=== PATIENT | male | born 1960 | race Caucasian/White ===

== ENCOUNTER 2017-06-26 05:54 | Inpatient (IN) | payer OTHER ==
[2017-06-09 10:54] VITALS: BMI 43.0
--- NOTE | 2017-06-09 11:26 | PAT Medication Instructions ---
Service Date Jun 09, 2017. Current Home Medication List Allopurinol (Zyloprim), 300 MG PO QAM Atorvastatin (Lipitor), 20 MG PO QAM Cholecalciferol (Vitamin D), 1 TAB PO QAM Cyclobenzaprine Hcl (Flexeril), 10 MG PO TID PRN Levothyroxine Sodium (Synthroid), 150 MCG PO QAM Loratadine (Claritin), 10 MG PO QAM Meloxicam (Mobic), 7.5 MG PO DAILY PRN for Pain Multivitamin (Multivitamin), 1 TAB PO DAILY Pantoprazole Sodium (Protonix), 40 MG PO QAM Sumatriptan Succinate (Imitrex), 50 MG PO UD Tamsulosin Hcl (Flomax), 0.4 MG PO QAM Tramadol Hcl (Ultram), 1-2 TABLETS PO Q4-6HR PRN Medication Instructions For Your Scheduled Surgery - Hold the following medications 2 weeks prior to surgery: Meloxicam (Mobic), 7.5 MG PO DAILY PRN for Pain - Hold the following medications the morning of surgery: Loratadine (Claritin), 10 MG PO QAM Multivitamin (Multivitamin), 1 TAB PO DAILY Cholecalciferol (Vitamin D), 1 TAB PO QAM Cyclobenzaprine Hcl (Flexeril), 10 MG PO TID PRN - Take the following medications the morning of surgery with a sip of water: Tramadol Hcl (Ultram), 1-2 TABLETS PO Q4-6HR PRN (if needed, can be taken up to four hours before surgery) Tamsulosin Hcl (Flomax), 0.4 MG PO QAM Sumatriptan Succinate (Imitrex), 50 MG PO UD (if needed) Allopurinol (Zyloprim), 300 MG PO QAM Atorvastatin (Lipitor), 20 MG PO QAM Levothyroxine Sodium (Synthroid), 150 MCG PO QAM Pantoprazole Sodium (Protonix), 40 MG PO QAM - Take the following medications as scheduled the night before surgery: Tramadol Hcl (Ultram), 1-2 TABLETS PO Q4-6HR PRN (if needed) Sumatriptan Succinate (Imitrex), 50 MG PO UD Cyclobenzaprine Hcl (Flexeril), 10 MG PO TID PRN (if needed) If you have any questions please call us at [phone] or [phone] or [phone]
[2017-06-09 11:47] LABS: BASO % 0.5 %; BASO ABS # 0.04 K/uL (0-0.2); EOS ABS # 0.38 K/uL (0-0.5); IG# 0.01 K/uL (0.00-0.02); LYMPH % 36.4 %; LYMPH ABS # 2.77 K/uL (1.2-3.4); MEAN CORPUSCULAR HEMOGLOBIN 31.4 pg (25-34); MEAN CORPUSCULAR HGB CONC 34.9 g/dl (32-36); MEAN PLATELET VOLUME 10.2 fL (7.4-10.4); MONO % 7.5 %; MONO ABS # 0.57 K/uL (0.11-0.59); NEUT % 50.5 %; NEUT ABS # 3.83 K/uL (1.4-6.5); PLATELET COUNT 199 K/uL (130-400); RED CELL DISTRIBUTION WIDTH CV 14.1 % (11.5-14.5); RED CELL DISTRIBUTION WIDTH SD 45.9 fL (36.4-46.3)
--- NOTE | 2017-06-09 12:06 | DIAGNOSTIC IMAGING REPORT ---
CHEST 2 VIEWS ROUTINE HISTORY: 56 years-old Male PAT preoperative exam. No acute chest complaints. COMPARISON: Chest radiograph 06/15/2012 TECHNIQUE: PA and lateral views of the chest FINDINGS: Cardiomediastinal and hilar silhouettes are within normal limits. The lungs are hyperinflated with diaphragmatic flattening and increased retrosternal clear space. Peripheral distribution of reticular opacities are noted, right and left than multilobar lung zone distribution appear to have progressed from prior study. Mild right hemidiaphragmatic elevation. There is no pneumothorax, pleural effusion or focal airspace consolidation. Bones appear grossly intact. IMPRESSION: 1. Peripheral distribution of reticular opacities, right greater than left suggest areas of chronic scarring. 2. Hyperinflation. The above report was generated using voice recognition software. It may contain grammatical, syntax or spelling errors. Electronically signed by: Chivo Arreola M.D. 06/09/2017 12:05 PM Dictated Date/Time: 06/09/2017 12:02 PM
[2017-06-26] VITALS (10 sets, daily range): BP systolic 97–134; BP diastolic 63–90; PULSE 92–110; TEMP 36.4–37; O2SAT 84–97; BMI 43.0
[~2017-06-26] VITALS: Ht 167.6 cm; Wt 121.0 kg
[~2017-06-26 05:54] MED LIST: ALLO300T2 PO; ATOR-22 PO; CHOL200010 PO; CLR10 PO; CYCL10TA6 PO; LEVO150T PO; MELO7.5T5 PO; MULT-506 PO; PANT40TA PO; SUMA50TA15 PO; TAMS0.4C38 PO; TRAM-453 PO
[2017-06-26] MEDS ORDERED: CEFAZOLIN 3000MG IV PUSH 22.5 ML IV SCH (06:00)
[2017-06-26] MEDS ORDERED: CEFAZOLIN 2000MG IV PUSH 15 ML IV SCH (06:00)
[2017-06-26] MEDS ORDERED: LACTATED RINGER'S 1000ML 1,000 ML IV SCH (06:00)
[2017-06-26] MEDS ORDERED: [UNRECOGNIZED DRUG - REMARK] PO (06:20)
[2017-06-26] MEDS ORDERED: MIDAZOLAM HCL 1 MG/ML 2ML VIAL ONE (06:46)
[2017-06-26] MEDS ORDERED: FENTANYL CITRATE INJ 50 MCG/1 ML 2 ML VIAL ONE ×6 (06:46→11:47)
[2017-06-26] MEDS ORDERED: BACITRACIN 50000 UNIT VIAL ONE (06:52)
[2017-06-26] MEDS ORDERED: BUPIVACAINE/EPINEPHRINE 0.5% MPF 1:200,000 30 ML VIAL ONE ×2 (06:52→07:26)
--- NOTE | 2017-06-26 07:35 | History & Physical Bridge Note ---
H&P Re-Evaluation Bridge Note: I have examined the patient, reviewed the History & Physical and in the interval since the performance of the History & Physical I have noted the following changes of clinical significance: No changes noted
--- NOTE | 2017-06-26 07:36 | History and Physical ---
History & Physical Date Jun 26, 2017. Chief Complaint Back and leg pain History of Present Illness The patient is a 56 year old male with complaints of back and leg pain Additional History Hepatic Disease: No Endocrine Disorder: No Kidney Disease: No Hypertension: No Heart Disease: No Bleeding Tendencies: No Infectious Diseases: No Allergies Coded Allergies: Diphenhydramine (Verified Allergy, Mild, ITCHY, HIVES, 06/26/17) Home Medications Scheduled Allopurinol (Zyloprim), 300 MG PO QAM Atorvastatin (Lipitor), 20 MG PO QAM Cholecalciferol (Vitamin D), 1 TAB PO QAM Levothyroxine Sodium (Synthroid), 150 MCG PO QAM Loratadine (Claritin), 10 MG PO QAM Multivitamin (Multivitamin), 1 TAB PO DAILY Pantoprazole Sodium (Protonix), 40 MG PO QAM Sumatriptan Succinate (Imitrex), 50 MG PO UD Tamsulosin Hcl (Flomax), 0.4 MG PO QAM Tramadol Hcl (Ultram), 1-2 TABLETS PO Q4-6HR PRN [diabetic pill], 1 TAB PO BID Scheduled PRN Cyclobenzaprine Hcl (Flexeril), 10 MG PO TID PRN Meloxicam (Mobic), 7.5 MG PO DAILY PRN for Pain Physical Examination Skin: warm/dry, no rash Eyes: normal inspection, EOMI, sclerae normal ENT: normal ENT inspection, pharynx normal Head: normocephalic, atraumatic Neck: supple, no adenopathy, trachea midline Respiratory/Chest: lungs clear, normal breath sounds, no respiratory distress Cardiovascular: regular rate, rhythm, no edema, no murmur Abdomen / GI: normal bowel sounds, non tender Back: normal inspection Extremities: normal inspection, normal range of motion Neurologic/Psych: no motor/sensory deficits, alert, normal reflexes, oriented x 3 Diagnosis Lumbar spinal stenosis Plan of Treatment Removal of hardware L3 to S1 decompression and fusion T12 to L2 with iliac bolts
[2017-06-26] MEDS ORDERED: HYDROmorphone INJ 2 MG/ML SYR/VIAL ONE ×4 (08:08→12:01)
[2017-06-26] MEDS ORDERED: EpHEDrine SULFATE INJ 50 MG/ML AMP IV PRN (08:30)
[2017-06-26] MEDS ORDERED: ATROPINE SULFATE 0.1 MG/ML 5ML SYR IV PRN (08:30)
[2017-06-26] MEDS ORDERED: HYDROmorphone INJ 1 MG/ML SYR IV PRN (08:30)
[2017-06-26] MEDS ORDERED: FENTANYL CITRATE INJ 50 MCG/1 ML 2 ML VIAL IV PRN (08:30)
[2017-06-26] MEDS ORDERED: ONDANSETRON INJ 2 MG/ML 2 ML VIAL IV PRN ×2 (08:30→11:45)
[2017-06-26] MEDS ORDERED: ALBUMIN HUMAN 5% 12.5 GM/250 ML VIAL IV ONE (09:46)
[2017-06-26] MEDS ORDERED: DEXAMETHASONE SOD INJ 4 MG/ML VIAL ONE (10:21)
[2017-06-26] MEDS ORDERED: ROCURONIUM BROMIDE 10 MG/ML 5 ML VIAL IV ONE (10:21)
[2017-06-26] MEDS ORDERED: LIDOCAINE HCL 2% 2 ML VIAL (20MG/ML) ONE (10:21)
[2017-06-26] MEDS ORDERED: PROPOFOL IV EMULSION 10 MG/ML 20 ML VIAL IV ONE (10:21)
[2017-06-26] MEDS ORDERED: ONDANSETRON INJ 2 MG/ML 2 ML VIAL ONE ×2 (10:21→11:53)
[2017-06-26] MEDS ORDERED: CEFAZOLIN SOD 1 GM VIAL ONE (11:06)
[2017-06-26] MEDS ORDERED: FLOSEAL HEMOSTATIC MATRIX 10ML TOP ONE (11:28)
[2017-06-26 11:35] LABS: HEMATOCRIT 31.5 % (42-52); HEMOGLOBIN 11.2 g/dL (14.0-18.0)
[2017-06-26] MEDS ORDERED: ACETAMINOPHEN IV 100 ML IV PRN (11:45)
[2017-06-26] MEDS ORDERED: METOCLOPRAMIDE HCL INJ 5 MG/ML 2 ML VIAL IV PRN (11:45)
[2017-06-26] MEDS ORDERED: LORAZEPAM 0.5 MG TAB PO PRN (11:45)
[2017-06-26] MEDS ORDERED: LORAZEPAM INJ 0.5 MG in SYRINGE 0 ML IV PRN (11:45)
[2017-06-26] MEDS ORDERED: PROMETHAZINE HCL INJ 12.5 MG in SODIUM CHLORIDE 0.9% 50ML 50 ML IV PRN (11:45)
[2017-06-26] MEDS ORDERED: MAGNESIUM HYDROXIDE SUSP 30 ML UDC PO PRN (11:45)
[2017-06-26] MEDS ORDERED: SOD PHOSPHATE/SOD BIPHOSPHATE ENEMA 132 ML BTL PR PRN (11:45)
[2017-06-26] MEDS ORDERED: BISACODYL 10 MG SUPP PR PRN (11:45)
[2017-06-26] MEDS ORDERED: FAMOTIDINE 20 MG TAB PO PRN (11:45)
[2017-06-26] MEDS ORDERED: SUMATRIPTAN SUCCINATE 50 MG TAB PO PRN (11:45)
[2017-06-26] MEDS ORDERED: DO NOT ADMINISTER FLU VACCINE PRN (11:45)
[2017-06-26] MEDS ORDERED: NALOXONE HCL 0.4 MG/1 ML VIAL/CARP IV PRN (11:45)
[2017-06-26] MEDS ORDERED: hydrOXYzine HCL 25 MG TAB PO PRN (11:45)
[2017-06-26] MEDS ORDERED: CEFAZOLIN IV 2,000 MG in DEXTROSE 5% 50ML 50 ML IV SCH (11:45)
[2017-06-26] MEDS ORDERED: DO NOT ADMINISTER PNEUMOCOCCAL VACCINE PRN (11:45)
[2017-06-26] MEDS ORDERED: SODIUM CHLORIDE 0.9% 1000ML 1,000 ML IV SCH (11:45)
[2017-06-26] MEDS ORDERED: ALUMINUM/MAGNESIUM SUSP 30 ML UDC PO PRN (11:45)
--- NOTE | 2017-06-26 11:45 | [facility] Operative Report ---
Operative Report Operative Date Jun 26, 2017. Pre-Operative Diagnosis Lumbar Spinal Stenosis Post-Operative Diagnosis Same Procedure(s) Performed #1 removal of posterior segmental instrumentation L3 to S1. #2 expiration of fusion L3 to S1. #3 lumbar decompression medial facetectomies foraminotomies L1 to L2 3. #4 posterior spinal fusion T11 to L3. #5 bilateral SI joint fusions. #6 placement posterior segmental instrumentation T11 to S1 with bilateral iliac bolts. #7 interbody fusion L2 3. #8 placement peek cage 11 x 22 mm at L2-3. #9 placement of locally harvested morcellized autograft in the posterior lateral gutters. #10 placement infuse collagen sponge, and Master graft in the posterior lateral gutters and ostial amp in the interbody spaces. Surgeon Dr. Maher Supplier Development Manager Surgeon(s) Vickie Greenwood PA-C Estimated Blood Loss 1400 Description of Procedure Patient was met with preoperatively case discussed all questions addressed. After informed consent obtained patient was taken to the operative suite underwent intubation and placed in a prone position the Lester table on top of the Eitan frame. All bony prominences were well-padded the eyes were inspected to ensure no external pressure placed upon them. This point the lumbar spine was prepped and draped in the normal sterile fashion. Sharp dissection with the assistance of Bovie cautery was performed onto an exposing lamina and transverse processes of T11-T12 L1-L2 and instrumentation L3 L4-L5 S1 levels as well as bilateral SI joints. Then proceeded remove the hardware from L3 to S1 bilaterally spine the fusion mass noting it to be intact. Then performed a complete laminectomy of L2 partial laminectomy of L3 addressing severe lateral recess and foraminal stenosis. Pedicle screws were then placed and T11 T12 L1 L2-L3 L4 S1 levels as well as bilateral iliac bolts. Processes sylvia was then cut contoured and placed bilaterally. Through a transforaminal approach on the left complete discectomy of L2-3 was performed endplates graded to subcortical bleeding bone and a 11 x 22 mm peek cage filled with osteal bone graft tapped in position. Rods were then locked and final position bilaterally. A cross-link locked in position. The transverse processes and lamina of T 11 T12 L1 L2 and L3 as well as the bilateral SI joints were burred to subcortical bleeding bone. Infuse collagen sponge, mass graft was placed posterior gutters as well as in the bilateral SI joints. 15 round SHANTE drain inserted. Incision was then closed with 1 Vicryl the fascia 2-0 Vicryl subcutaneous tensely 4-0 Monocryl for fossa closure Steri-Strips dressings placed. Patient with continued PACU stable condition. Please note Vickie Thomason was present at the entire procedure involved in patient positioning complex portions of the surgery and final skin closure. I attest to the content of the Intraoperative Record and any orders documented therein. Any exceptions are noted below.
[2017-06-26] MEDS ORDERED: NEOSTIGMINE METHYLSULFATE 1 MG/ML 10ML VIAL ONE (11:53)
[2017-06-26] MEDS ORDERED: EpHEDrine SULFATE 50MG/5ML SYR ONE (11:53)
[2017-06-26] MEDS ORDERED: PHENYLEPHRINE 100MCG/ML 5ML SYR ONE (11:53)
[2017-06-26] MEDS ORDERED: KETOROLAC TROMETHAMINE 30 MG/ML VIAL ONE (11:53)
[2017-06-26] MEDS ORDERED: VOLUVEN IN NSS ONE (11:53)
[2017-06-26] MEDS ORDERED: GLYCOPYRROLATE INJ 0.2 MG/ML VIAL ONE (11:53)
--- NOTE | 2017-06-26 12:25 | DIAGNOSTIC IMAGING REPORT ---
INTRAOPERATIVE LUMBAR SPINE 6 VIEWS CLINICAL HISTORY: L3-S1 HARDWARE REMOVAL - T11-L2 DECOMPRESSION/FUSION COMPARISON STUDY: No previous studies for comparison. FINDINGS: 42 seconds of fluoroscopic time was utilized. 6 intraoperative fluoroscopic spot images are provided for interpretation. There are postsurgical changes of L2-3, L4-5, and L5-S1 discectomy and interbody fusions. There is posterior spinal rodding with pedicle screw fixation extending from the T11 to the S1 level. There are bilateral sacroiliac bolts. IMPRESSION: Intraoperative radiographs as described above. Electronically signed by: Rohan Guajardo M.D. 06/26/2017 12:23 PM Dictated Date/Time: 06/26/2017 12:21 PM
[2017-06-26] MEDS ORDERED: HYDROmorphone HCL 0.5MG/ML 50 ML CASSETTE ONE (12:31)
[2017-06-26] MEDS ORDERED: NovoLIN-R INSULIN PER UNIT CHARGE ONE (12:51)
[2017-06-26] MEDS: HYDROmorphone HCL 0.5MG/ML 50 ML CASSETTE IV PRN ×3 (13:46→23:19)
--- NOTE | 2017-06-26 13:52 | Anesthesiology Progress Note ---
Anesthesia Post Op Note Date & Time Jun 26, 2017 at 13:52 Vital Signs Pain Intensity: 4.0 Vital Signs Past 12 Hours Date Time Temp Pulse Resp B/P (MAP) Pulse Ox O2 Delivery O2 Flow Rate FiO2 06/26/17 13:45 36.6 99 16 97/66 (76) 97 Nasal Cannula 2.0 06/26/17 13:30 108 16 121/71 96 Nasal Cannula 3 06/26/17 13:10 100 12 110/70 95 Nasal Cannula 3 06/26/17 13:00 36.2 99 19 117/73 97 Nasal Cannula 3 06/26/17 12:50 98 16 108/77 95 Nasal Cannula 3 06/26/17 12:40 96 16 115/75 98 Oxymask 3 06/26/17 12:30 92 16 116/77 98 Oxymask 5 06/26/17 12:20 100 16 110/81 98 Oxymask 10 06/26/17 12:14 36.3 97 16 118/74 96 Oxymask 10 06/26/17 06:10 36.8 105 20 134/90 94 Room Air Notes Mental Status: alert / awake / arousable, participated in evaluation Pt Amnestic to Procedure: Yes Nausea / Vomiting: adequately controlled Pain: adequately controlled Airway Patency, RR, SpO2: stable & adequate BP & HR: stable & adequate Hydration State: stable & adequate Anesthetic Complications: no major complications apparent
[2017-06-26] MEDS ORDERED: ESMOLOL HCL 10 MG/ML 10 ML VIAL ONE (14:25)
[2017-06-26] MEDS ORDERED: GLC500 PO (14:40)
[2017-06-26] MEDS: SODIUM CHLORIDE 0.9% 1000ML 1,000 ML IV SCH ×2 (14:41→21:31)
[2017-06-26] MEDS ORDERED: GLUCOSE 40% GEL 15 GM TUBE PO PRN (14:45)
[2017-06-26] MEDS ORDERED: GLUCAGON FOR INJ 1 MG VIAL SQ PRN (14:45)
[2017-06-26] MEDS ORDERED: GLUCOSE 10 TABS/TUBE PO PRN (14:45)
[2017-06-26] MEDS ORDERED: DEXTROSE 50% 50 ML SYR IV PRN (14:45)
[2017-06-26] MEDS ORDERED: DC ALL PREVIOUSLY ORDERED DIABETES MEDS ONE (14:45)
[2017-06-26] MEDS ORDERED: PHARMACY GLYCEMIC MGMT CONSULT PRN (14:46)
[2017-06-26 14:57] LABS: HEMATOCRIT 31.1 % (42-52); HEMOGLOBIN 10.9 g/dL (14.0-18.0); MEAN CELL VOLUME 88.9 fL (80-100); MEAN CORPUSCULAR HEMOGLOBIN 31.1 pg (25-34); MEAN PLATELET VOLUME 9.1 fL (7.4-10.4); PLATELET COUNT 142 K/uL (130-400); RED CELL DISTRIBUTION WIDTH CV 14.1 % (11.5-14.5); RED CELL DISTRIBUTION WIDTH SD 45.8 fL (36.4-46.3); WHITE BLOOD COUNT 8.56 K/uL (4.8-10.8)
--- NOTE | 2017-06-26 15:14 | Pharmacy Progress Note ---
Glycemic Control Intl Consult Date of Service Jun 26, 2017. Scope Glycemic Pharmacist consulted by Dr Garcia on 06/26/17 for glycemic control and to write orders per [facility] inpatient glycemic control protocol Objective Weight (Kilograms): 121.00 Accuchecks BSG (last 24hrs): Test 06/26/17 12:48 06/26/17 13:11 06/26/17 14:10 06/26/17 14:45 Bedside Glucose 218 mg/dl (70-99) 212 mg/dl (70-99) 228 mg/dl (70-99) Laboratory Data (last 24hrs) Test 06/26/17 14:45 White Blood Count 8.56 K/uL Recent Pertinent Medications Outpatient Anti-diabetic Regimen: * Metformin 500mg PO BID with meals * A1c - ordered for tomorrow morning Risk Factors for Insulin Resistance: * Steroids: Dexamethasone 12mg IV in OR * Recent Surgery: POD 0 Spinal fusion * Diet: Type 2 DM Assessment & Plan ASSESSMENT: * 56 year old male type 2 diabetic admitted for with spinal stenosis, s/p surgery with hyperglycemia, d/t IV steroids * Pt is maintained on oral antidiabetic agents as an outpatient * Oral agents are not recommended for inpatient use d/t drug interactions, changing PO intake, and difficulty titrating for acute hyper/hypoglycemia. ADA recommends re-initiating outpatient oral agents 1-2 days prior to discharge if/ when appropriate if they were held on admission. * Will hold oral agents for admission and utilize SQ basal bolus insulin regimen which is the recommended regimen for inpatient glycemic control. * Will initiate weight based insulin dosing for insulin nuria patient and titrate based on BSG trends. * Begin with stress of 3 d/t IV steroids PLAN FOR INPATIENT GLYCEMIC CONTROL: * A1c with AM labs * Holding outpatient oral diabetes medications * Basal insulin with LANTUS 45 units SQ x 1 dose now then * 15 units HS if BSG 140mg/dl or greater * Follow up with AM BSG to determine if further Lantus is needed * Correctional Insulin with NOVOLOG per scale ACHS and overnight at 0000 and 0400 d/t IV steroids * Goal Range: Low 110 mg/dL - High 140 mg/dL * Correction Factor: 15 mg/dL/unit * Nutritional / Prandial insulin per carb ratio of 1 unit per 5 grams CHO consumed * Please note that the plan above was derived based on current level of insulin resistance and hospital stress. These recommendations are appropriate for inpatient admission only. Plan of care upon discharge will need to be reassessed to avoid potential outpatient hypo/hyperglycemia. Thank you.
[2017-06-26] MEDS ORDERED: INSULIN GLARGINE SOLOSTAR 100 UNITS/ML 3 ML PEN SC ONE (15:15)
[2017-06-26 15:45] LABS: CALCIUM 8.3 mg/dl (8.5-10.1); CREATININE 1.25 mg/dl (0.60-1.40); POTASSIUM 4.2 mmol/L (3.5-5.1)
--- NOTE | 2017-06-26 15:49 | Medical Consult ---
Consultation Date of Consultation: Jun 26, 2017. Attending Physician: Darwin Maher D.O. Reason for Consultation: post-op medical management History of Present Illness This is a 56yo M with a PMH of lumbosacral disc degeneration, DM II, hypothyroidism, GERD, Gout, BPH and HLD who is POD #0 s/p decompression fusion T12-L2 with iliac bolts and removal of hardware L3-S1 by Dr. Maher. Patient is doing well post-operatively. Denies any pain, fever, chills, lightheadedness, headache, visual changes, sore throat, CP, SOB, abdominal pain, nausea, vomiting , dysuria or LE swelling. Does endorse some numbness in his R hand that is new since surgery today. Denies any weakness or tingling. Follows with Dr. Rudd at [facility]. Was recently diagnosed with DM II and is taking metformin. Most recent hgb a1c was 8.1 in May 2017. Past Medical/Surgical History Medical Problems: (1) BPH (benign prostatic hyperplasia) Status: Chronic (2) Diabetes mellitus, type II Status: Chronic (3) GERD (gastroesophageal reflux disease) Status: Chronic (4) Gout Status: Chronic (5) HLD (hyperlipidemia) Status: Chronic (6) Hypothyroidism Status: Chronic (7) Lumbar stenosis with neurogenic claudication Status: Chronic Family History Hypertension Social History Smoking Status: Former Smoker Alcohol Use: none Marital Status: Housing Status: lives with family Occupation Status: employed Allergies Coded Allergies: Diphenhydramine (Verified Allergy, Mild, ITCHY, HIVES, 06/26/17) Home Medications Reported Home Medications Medications Dose Route/Sig Max Daily Dose Days Date Category Dose Instructions Metformin HCl 500 Mg Tab 500 Mg PO BIDM 06/26/17 Reported Flomax (Tamsulosin Hcl) 0.4 Mg Cap 0.4 Mg PO QAM 06/09/17 Reported Claritin (Loratadine) 10 Mg Tab 10 Mg PO QAM 06/09/17 Reported Lipitor (Atorvastatin Calcium) 20 Mg Tab 20 Mg PO QAM 06/09/17 Reported Mobic (Meloxicam) 7.5 Mg Tab 7.5 Mg PO DAILY PRN 06/09/17 Reported Multivitamin (Multivitamins) Tab 1 Tab PO DAILY 06/09/17 Reported Vitamin D (Cholecalciferol) 2,000 Unit Cap 5,000 Inter.unit PO QAM 06/09/17 Reported Synthroid (Levothyroxine Sodium) 150 Mcg Tab 150 Mcg PO QAM 06/09/17 Reported Imitrex (Sumatriptan Succinate) 50 Mg Tab 50 Mg PO UD 06/15/12 Reported 1 tablet at onset. may repeat in 2 hours Protonix (Pantoprazole Sodium) 40 Mg Tab 40 Mg PO QAM 06/15/12 Reported Zyloprim (Allopurinol) 300 Mg Tab 300 Mg PO QAM 06/15/12 Reported Flexeril (Cyclobenzaprine Hcl) 10 Mg Tab 10 Mg PO TID PRN 06/15/12 Reported Ultram (Tramadol Hcl) 50 Mg Tab 1-2 Tablets PO Q4-6HR PRN 06/15/12 Reported PRN PAIN Current Inpatient Medications Current Inpatient Medications Medications (Trade) Dose Ordered Sig/Nelda Route Start Time Stop Time Status Last Admin Dose Admin Cefazolin Sodium 22.5 ml @ 3 mls/min PREOP IV 06/26/17 06:00 06/26/17 18:00 06/26/17 07:43 3 MLS/MIN Promethazine HCl 12.5 mg/Sodium Chloride 50.5 ml @ 202 mls/hr Q6H PRN IV 06/26/17 11:45 07/26/17 11:44 Ondansetron HCl (Zofran Inj) 4 mg Q6H PRN IV 06/26/17 11:45 07/26/17 11:44 Metoclopramide HCl (Reglan Inj) 10 mg Q6H PRN IV 06/26/17 11:45 07/26/17 11:44 Lorazepam (Ativan Tab) 0.5 mg Q8H PRN PO 06/26/17 11:45 07/26/17 11:44 Lorazepam 0.5 mg/ Syringe 0.25 ml @ 1 mls/min Q8H PRN IV 06/26/17 11:45 07/26/17 11:44 Pneumococcal Polysaccharide Vaccine 1 ea PRN PRN N/A 06/26/17 11:45 07/26/17 11:44 Influenza Virus Vacc Triv Types A&B 1 ea PRN PRN N/A 06/26/17 11:45 07/26/17 11:44 Polyethylene (Miralax Powder Packet) 17 gm Q6 PO 06/28/17 06:00 07/28/17 05:59 Bisacodyl (Dulcolax Supp) 10 mg DAILY PRN [place] 06/26/17 11:45 07/26/17 11:44 Magnesium Hydroxide (Milk Of Magnesia Susp) 30 ml DAILY PRN PO 06/26/17 11:45 07/26/17 11:44 Hydromorphone HCl (Dilaudid Inj) 0.5 mg Q3H PRN IV 06/27/17 06:00 07/11/17 05:59 Oxycodone HCl (Roxicodone Immediate Rel Tab) 5-10mg prn moderate to sev... Q4H PRN PO 06/27/17 06:00 07/11/17 05:59 Sodium Chloride 1,000 ml @ 150 mls/hr Q6H40M IV 06/26/17 14:15 07/26/17 14:14 06/26/17 14:41 150 MLS/HR Acetaminophen (Tylenol Tab) 1,000 mg Q8H PRN PO 06/26/17 11:45 07/26/17 11:44 Acetaminophen 100 ml @ 400 mls/hr Q8H PRN IV 06/26/17 11:45 07/26/17 11:44 Naloxone HCl (Narcan Inj) 0.1 mg Q5M PRN IV 06/27/17 06:00 07/27/17 05:59 Senna/Docusate Sodium (Senokot S Tab) 2 tab HS PO 06/26/17 21:00 07/26/17 20:59 Sodium Biphosphate/ Sodium Phosphate (Fleet Enema) 132 ml ONE PRN [place] 06/26/17 11:45 07/26/17 11:44 Hydroxyzine HCl (Vistaril Tab) 25 mg Q8H PRN PO 06/26/17 11:45 07/26/17 11:44 Al Hydroxide/Mg Hydroxide (Maalox Susp) 30 ml Q6H PRN PO 06/26/17 11:45 07/26/17 11:44 Famotidine (Pepcid Tab) 20 mg Q12H PRN PO 06/26/17 11:45 07/26/17 11:44 Miscellaneous Information (Discontinue INTERNATIONAL TRADE SPECIALIST) 1 ea TODAY@0600 N/A 06/27/17 06:00 06/27/17 06:01 Naloxone HCl (Narcan Inj) 0.1 mg Q5M PRN IV 06/26/17 11:45 06/27/17 06:00 Hydromorphone HCl (Dilaudid Workforce Planning Analyst) 25 mg PRN PRN IV 06/26/17 11:45 06/27/17 06:00 06/26/17 15:14 25 MG Sodium Chloride 1,000 ml @ 15 mls/hr Q24H IV 06/26/17 11:45 06/27/17 06:00 Allopurinol (Zyloprim Tab) 300 mg QAM PO 06/27/17 09:00 07/27/17 08:59 Atorvastatin Calcium (Lipitor Tab) 20 mg QAM PO 06/27/17 09:00 07/27/17 08:59 Levothyroxine Sodium (Synthroid Tab) 150 mcg DAILYBB PO 06/27/17 06:00 07/27/17 05:59 Loratadine (Claritin Tab) 10 mg QAM PO 06/27/17 09:00 07/27/17 08:59 Pantoprazole Sodium (Protonix Tab) 40 mg QAM PO 06/27/17 09:00 07/27/17 08:59 Sumatriptan Succinate (Imitrex Tab) 50 mg UD PRN PO 06/26/17 11:45 07/26/17 11:44 Tamsulosin HCl (Flomax Cap) 0.4 mg QAM PO 06/27/17 09:00 07/27/17 08:59 Tramadol HCl (Ultram Tab) 50 mg Q4H PRN PO 06/26/17 12:00 07/26/17 11:59 Hydromorphone HCl (Dilaudid Inj) 1 mg Q3H PRN IV 06/27/17 06:00 07/11/17 05:59 Cefazolin Sodium 2000 mg/Syringe 15 ml @ 3.75 mls/ min Q8H IV 06/26/17 16:00 06/27/17 00:03 Insulin Aspart (novoLOG ASPART) SLIDING SCALE IF C... ACHS SC 06/26/17 15:15 07/26/17 15:14 Glucose (Glucose 40% Gel) 15-30 GRAMS 15 GRAMS... UD PRN PO 06/26/17 14:45 07/26/17 14:44 Glucose (Glucose Chew Tab) 4-8 Tablets 4 Tabl... UD PRN PO 06/26/17 14:45 07/26/17 14:44 Dextrose (Dextrose 50% 50ML Syringe) 25-50ML OF 50% DW IV FOR... UD PRN IV 06/26/17 14:45 07/26/17 14:44 Glucagon (Glucagon Inj) 1 mg UD PRN SQ 06/26/17 14:45 07/26/17 14:44 Miscellaneous Information (Consult Glycemic Management Pharmacy) 1 ea UD PRN N/A 06/26/17 14:46 07/26/17 14:45 Insulin Glargine (Lantus Solostar Pen) SEE PROTOCOL HS SC 06/26/17 21:00 07/26/17 20:59 Insulin Aspart (novoLOG ASPART) SLIDING SCALE IF C... 0000,0400 AL 06/27/17 00:00 06/27/17 04:01 Review of Systems Ten systems reviewed and negative except as noted in the HPI. Physical Exam Date Time Temp Pulse Resp B/P (MAP) Pulse Ox O2 Delivery O2 Flow Rate FiO2 06/26/17 14:50 36.4 110 19 103/69 (80) 95 Nasal Cannula 2.0 06/26/17 14:37 Nasal Cannula 3.0 06/26/17 14:34 Nasal Cannula 3.0 06/26/17 14:19 36.4 106 18 99/65 (76) 96 Nasal Cannula 2.0 06/26/17 13:45 36.6 99 16 97/66 (76) 97 Nasal Cannula 2.0 06/26/17 13:30 108 16 121/71 96 Nasal Cannula 3 06/26/17 13:10 100 12 110/70 95 Nasal Cannula 3 06/26/17 13:00 36.2 99 19 117/73 97 Nasal Cannula 3 06/26/17 12:50 98 16 108/77 95 Nasal Cannula 3 06/26/17 12:40 96 16 115/75 98 Oxymask 3 06/26/17 12:30 92 16 116/77 98 Oxymask 5 06/26/17 12:20 100 16 110/81 98 Oxymask 10 06/26/17 12:14 36.3 97 16 118/74 96 Oxymask 10 06/26/17 06:10 36.8 105 20 134/90 94 Room Air General Appearance: WD/WN, no apparent distress, + obese Head: normocephalic, atraumatic Eyes: normal inspection, PERRL, sclerae normal ENT: normal ENT inspection, hearing grossly normal, pharynx normal Neck: supple, thyroid normal, trachea midline Respiratory/Chest: chest non-tender, lungs clear, normal breath sounds, no respiratory distress, no accessory muscle use Cardiovascular: regular rate, rhythm, no murmur, normal peripheral pulses Abdomen/GI: non tender, soft, no organomegaly Back: normal inspection, + pertinent finding (Dressing intact. Clean, dry. ) Extremities/Musculoskelatal: normal inspection (SCDs bilaterally ), no calf tenderness, no pedal edema Neurologic/Psych: no motor/sensory deficits, alert, normal mood/affect, oriented x 3 Skin: normal color, warm/dry Laboratory Results Last 24 Hours Test 06/26/17 11:25 06/26/17 12:48 06/26/17 13:11 06/26/17 14:10 Hemoglobin 11.2 g/dL Hematocrit 31.5 % Bedside Glucose 218 mg/dl 212 mg/dl 228 mg/dl Test 06/26/17 14:45 White Blood Count 8.56 K/uL Red Blood Count 3.50 M/uL Hemoglobin 10.9 g/dL Hematocrit 31.1 % Mean Corpuscular Volume 88.9 fL Mean Corpuscular Hemoglobin 31.1 pg Mean Corpuscular Hemoglobin Concent 35.0 g/dl RDW Standard Deviation 45.8 fL RDW Coefficient of Variation 14.1 % Platelet Count 142 K/uL Mean Platelet Volume 9.1 fL Sodium Level 139 mmol/L Potassium Level 4.2 mmol/L Chloride Level 106 mmol/L Carbon Dioxide Level 24 mmol/L Anion Gap 9.0 mmol/L Blood Urea Nitrogen 22 mg/dl Creatinine 1.25 mg/dl Est Creatinine Clear Calc Drug Dose 79.0 ml/min Estimated GFR () 73.1 Estimated GFR (Non- 63.1 BUN/Creatinine Ratio 17.7 Random Glucose 224 mg/dl Calcium Level 8.3 mg/dl Assessment & Plan This is a 56yo M with a PMH of lumbosacral disc degeneration, DM II, hypothyroidism, GERD, Gout, BPH and HLD who is POD #0 s/p decompression fusion T12-L2 with iliac bolts and removal of hardware L3-S1 by Dr. Maher. Lumbosacral back pain s/p decompression fusion: -Decompression T12-L2 with iliac bolts and removal of hardware L3-S1 by Dr. Maher. -Doing well post-operatively -Per ortho for pain control, wound care, anticoagulation and activities -Monitor H&H, continue incentive spirometry, PT/OT when appropriate DM II: -A1c 8.1 in May 2017 -Hold home oral agents -12mg dexamethasone intraoperatively -Glycemic consult placed -BSG check AC HS Numbness in R hand: -Likely 2/2 malpositioning post-operatively -Describes numbness in distribution of ulnar nerve in 4th & 5th dorsal aspect of fingers, hand -No motor or sensory deficit on exam -Monitor Hypothyroidism: -Cont synthroid GERD: -Cont protonix Gout: -Cont allopurinol BPH: -Cont tamsulosin HLD: -Cont atorvastatin PCP: Blaire Dispo: Per ortho Patient seen in collaboration with Dr. Judge. Please see addendum. Attending Addendum: The patient was seen and examined om 06/26/17 S/P Lumbar back surgery Sitting on a chair and enjoying food Denies any complaints O/E No distress at rest Hemodynamically stable Chest-clear Heart-regular Abdomen-benign Extremity-no edema Labs and Imaging studies were reviewed Agree with the assessment and plan Dr Don Judge Thank you for this consultation. We will follow the patient with you during their hospital stay. You can reach a member of the [facility] Hospitalist Team 25/11 via pager @ .
[2017-06-26] MEDS: INSULIN ASPART 100 UNITS/ML 3 ML PEN SC SCH ×4 (15:56→23:56)
[2017-06-26 16:47] LABS: HEMOGLOBIN A1C 7.7 % (4.5-5.6)
[2017-06-26] MEDS: CEFAZOLIN IV 2,000 MG in SYRINGE 0 ML IV SCH ×2 (17:26→23:43)
[2017-06-26] MEDS: DOCUSATE SODIUM/SENNA 50/8.6MG TAB PO SCH (21:32)
[2017-06-26] MEDS: INSULIN GLARGINE SOLOSTAR 100 UNITS/ML 3 ML PEN SC SCH (21:39)
[2017-06-27 04:00] VITALS: BP 103/68; PULSE 85; TEMP 36.8; O2SAT 93
[2017-06-27] MEDS: INSULIN ASPART 100 UNITS/ML 3 ML PEN SC SCH ×5 (04:00→21:07)
[2017-06-27] MEDS: SODIUM CHLORIDE 0.9% 1000ML 1,000 ML IV SCH (04:07)
[2017-06-27] MEDS ORDERED: DC PCA SCH (06:00)
[2017-06-27] MEDS ORDERED: NALOXONE HCL 0.4 MG/1 ML VIAL/CARP IV PRN (06:00)
[2017-06-27] MEDS ORDERED: HYDROmorphone INJ 1 MG/ML SYR IV PRN (06:00)
[2017-06-27] MEDS ORDERED: HYDROmorphone INJ 0.5 MG/0.5 ML SYR IV PRN (06:00)
[2017-06-27] MEDS: LEVOTHYROXINE 150 MCG TAB PO SCH (06:28)
[2017-06-27] MEDS: ACETAMINOPHEN 500 MG TAB PO PRN (06:29)
[2017-06-27] MEDS ORDERED: NURSING DECISION MEDICATION ORDER SCH (06:30)
[2017-06-27 07:52] LABS: EOS % 0.1 %; EOS ABS # 0.01 K/uL (0-0.5); HEMATOCRIT 27.5 % (42-52); HEMOGLOBIN 9.5 g/dL (14.0-18.0); IG# 0.02 K/uL (0.00-0.02); LYMPH % 17.3 %; LYMPH ABS # 1.81 K/uL (1.2-3.4); MEAN CELL VOLUME 89.3 fL (80-100); MEAN CORPUSCULAR HEMOGLOBIN 30.8 pg (25-34); MEAN CORPUSCULAR HGB CONC 34.5 g/dl (32-36); MEAN PLATELET VOLUME 9.3 fL (7.4-10.4); MONO % 9.9 %; MONO ABS # 1.04 K/uL (0.11-0.59); NEUT % 72.5 %; NEUT ABS # 7.59 K/uL (1.4-6.5); PLATELET COUNT 143 K/uL (130-400); RED CELL DISTRIBUTION WIDTH SD 46.1 fL (36.4-46.3); WHITE BLOOD COUNT 10.47 K/uL (4.8-10.8)
[2017-06-27 08:09] VITALS: BP 112/82; PULSE 98; TEMP 37; O2SAT 92
[2017-06-27 08:39] LABS: CALCIUM 8.2 mg/dl (8.5-10.1); CREATININE 0.92 mg/dl (0.60-1.40)
[2017-06-27 08:57] VITALS: O2SAT 92
[2017-06-27] MEDS ORDERED: INSULIN GLARGINE SOLOSTAR 100 UNITS/ML 3 ML PEN SC SCH (09:00)
[2017-06-27] MEDS: ALLOPURINOL 300 MG TAB PO SCH (09:39)
[2017-06-27] MEDS: ATORVASTATIN 20 MG TAB PO SCH (09:39)
[2017-06-27] MEDS: LORATADINE 10 MG TAB PO SCH (09:40)
[2017-06-27] MEDS: PANTOprazole SOD 40 MG TAB PO SCH (09:40)
[2017-06-27] MEDS: TAMSULOSIN HCL 0.4 MG CAP PO SCH (09:41)
[2017-06-27] MEDS ORDERED: RXC5 PO (09:41)
--- NOTE | 2017-06-27 09:42 | Discharge Instructions ---
Discharge Instructions Date of Service Jun 27, 2017. Admission Reason for Admission: Lumbar Spinal Stenosis Discharge Discharge Diagnosis / Problem: stenosis Discharge Goals Goal(s): Improve function Activity Recommendations Activity Limitations: per Instructions/Follow-up section . Instructions / Follow-Up Instructions / Follow-Up ACTIVITY RECOMMENDATIONS: SELF CARE INSTRUCTIONS AFTER THORACIC/LUMBAR FUSIONS 1. You may walk to your tolerance. It is good exercise for your legs and back. Expect some back and intermittent leg aches and pains. 2. You may perform "counter-top" level activities (make a sandwich, marilu with a project, etc.). 3. No bending or lifting of more than 10 pounds or back twisting of any nature (roll like a log when turning in bed). 4. You may ride in a car for 20-30 minutes at a time. No driving until after your first visit with your doctor. 5. Frequent changes of position and restricting sitting to 30 minutes at a time will help limit the amount of back spasms and stiffness you may experience. 6. You may discontinue the use of ambulatory aids (cane, crutches, etc.) once your strength and confidence allow. 7. You may spindle carver the shower and let water strike your incision when you arrive home at least once daily. Do not take a tub bath, sit in a hot tub or go into a swimming pool until after your first recheck in the office. SPECIAL CARE INSTRUCTIONS: VERY IMPORTANT TO READ AND REVIEW A. Your surgical incision has been closed with a cosmetic suture under the skin that will dissolve in about 6 weeks. In 14 days, you can use a pair of clean scissors and cut the suture that is left outside of the skin at the ends of your incision. 1. The small skin tapes can be removed 7 days after surgery if they have not fallen off by that point. 2. You may keep the wound open to air as much as possible to promote healing after post-op day number 5 unless told otherwise by your doctor. 3. If you think the wound looks like it is becoming infected (redness or worsening drainage) and/or you are experiencing fever, chill or worsening back pain and muscle spasms, contact the office so that we may evaluate you as soon as possible. B. Complications are uncommon, but please contact us if you have any signs or symptoms of: 1. wound infection (fever higher than 102.5 degrees F, redness, separation of wound, drainage, or increasing pain from the incision) 2. blood clots in legs (pain, swelling, redness and warmth in legs) 3. urinary tract infection (fever higher than 102.5 degrees F, burning upon urination or increased frequency of urination) 4. nerve problems (inability to walk on your toes or heels, numbness, loss of bowel or bladder control) 5. any other symptoms that concern you C. Please call the office at if you have any concerns or questions about your operation or recovery. D. No smoking! Smoking drastically decreases the chance of a solid fusion. E. Do not take any anti-inflammatory medications (Indocin, Advil, Motrin, Aspirin, Naprosyn, etc.) as these may inhibit the chance of a solid fusion. Tylenol is okay to take for pain. MANAGING PAIN AFTER SPINAL SURGERY 1. Narcotic medication is intended for short-term use and will be provided for surgical pain. Surgical pain usually lasts for a period of 4-6 weeks. Narcotic medication includes Percocet, Vicodin, Darvocet, Tylenol #3 or Lortab. 2. Longer-term pain is more appropriately treated with non-narcotic medication such as Tylenol ES. 3. Muscle spasm is not appropriately treated with narcotics. Muscle relaxers such as Soma, Flexeril or Skelaxin can be used along with Tylenol ES. 4. Remember that we all live with some "aches and pains". This is not unusual or uncommon after an injury or as we get older. a. Back pain is expected and may include muscle spasms for 4 to 6 weeks after surgery. The pain should gradually improve. If the pain worsens for no apparent reason, please contact the office. b. Intermittent leg pain may also be experienced and should not be concerned about unless it worsens for no apparent reason. If so, please contact the office. 5. We will provide appropriate medication within the normal guidelines of their prescribed use. We will also be very cautious and aware of potential abuse and extended duration of patients' medication needs. a. Pain medications are for your comfort and to assist with sleep and rest so that the tissue can heal. They are not provided in order to return to normal activity and should not be used through the day. To do so or worsening pain at night can result from ongoing tissue damage and development of tolerance to the prescribed medicine. 6. Please allow 2-3 days to process refills. Prescriptions will not be mailed but must be picked up at the office. FOLLOW UP VISIT: Keep your scheduled follow-up appointment. Any questions, please call the office at . Current Hospital Diet Patient's current hospital diet: Diabetes Type 2 Diet Discharge Diet Recommended Diet: Regular Diet Procedures Procedures Performed: #1 removal of posterior segmental instrumentation L3 to S1. #2 expiration of fusion L3 to S1. #3 lumbar decompression medial facetectomies foraminotomies L1 to L2 3. #4 posterior spinal fusion T11 to L3. #5 bilateral SI joint fusions. #6 placement posterior segmental instrumentation T11 to S1 with bilateral iliac bolts. #7 interbody fusion L2 3. #8 placement peek cage 11 x 22 mm at L2-3. #9 placement of locally harvested morcellized autograft in the posterior lateral gutters. #10 placement infuse collagen sponge, and Master graft in the posterior lateral gutters and ostial amp in the interbody spaces. Pending Studies Studies pending at discharge: no Laboratory Results Hemoglobin A1c Test 06/26/17 14:45 Range/Units Estimated Average Glucose 174 mg/dl Hemoglobin A1c 7.7 H 4.5-5.6 % Medical Emergencies . Who to Call and When: Medical Emergencies: If at any time you feel your situation is an emergency, please call 911 immediately. . Non-Emergent Contact Non-Emergency issues call your: Primary Care Provider . "Provider Documentation" section prepared by Darwin Maher. . VTE Core Measure Inpt VTE Proph given/why not?: Martin Pollock, SCD's
[2017-06-27] MEDS: OXYCODONE HCL IR 5 MG TAB (IMMEDIATE RELEASE) PO PRN ×3 (11:49→23:20)
[2017-06-27 12:17] VITALS: BP 128/78; PULSE 93; TEMP 36.9; O2SAT 94
--- NOTE | 2017-06-27 13:39 | Pharmacy Progress Note ---
Pharmacy Glycemic Short Note 2 Date of Service Jun 27, 2017. OUTPATIENT ANTIDIABETIC REGIMEN: * metformin 500 mg PO BID ASSESSMENT: * Mr Rojo is a 56 y/o M with a PMH of GERD, gout, BPH, HLD, hypothyroidism, and poorly controlled type 2 diabetes (goal HbA1C is around 6.5% -7% per the Elements of Diabetes Care Scoring Scale). He underwent a lumbar spinal surgery yesterday. Today is POD 1. Patient received 84 units of insulin -yesterday (60 units of Lantus) secondary to receiving 12 mg of IV dexamethasone in surgery. Blood sugars ranged from 157-273 mg/dL. * Today's fasting blood sugar was 149 mg/dL. Gave additional Lantus 20 units ( weight-based stress of 2 half dose) then scheduled Lantus 15 units (weight- based stress of 1 half-dose) for tonight if blood sugar elevated at 180 mg/dL. This will provide tapering Lantus doses as dexamethasone tapers. * For Novolog, continue weight-based stress of 3 dosing with breakfast; however with lunch blood sugar trending downwards, loosened to weight-based stress of 2. * For metformin, continue to hold. Restart metformin tomorrow if demonstrates appropriate diet. PLAN FOR INPATIENT GLYCEMIC CONTROL: * Hold outpatient oral diabetes medications * Basal insulin * Lantus 20 units SQ x 1 then 15 units tonight if BSG greater than 180 mg/dL * Bolus insulin * NovoLog per scale ACHS or Q6hrs while NPO * Goal Range: Low 110 mg/dL - High 140 mg/dL * Correction Factor: 20 mg/dL/unit * Nutritional / Prandial insulin per carb ratio of 1 unit per 6 grams CHO consumed PLAN FOR DISCHARGE: * Patient's HbA1C is uncontrolled. Recommend increasing metformin to maximum dose of 1000 mg PO BID. May also consider addition of second agent such as Victoza or Jardiance both of which have been proven to reduce cardiovascular morbidity and mortality in diabetes.
[2017-06-27 13:56] VITALS: Ht 167.6 cm; Wt 121.0 kg
--- NOTE | 2017-06-27 14:41 | Progress Note ---
Progress Note Date of Service Jun 27, 2017. Progress Note Back pain is controlled leg symptoms improved. Vital signs stable. On exam he isn't chair at bedside has good strength testing. Assessment status post lumbar fusion. Plan this time continue physical therapy advance his bowel regimen anticipate home Friday.
[2017-06-27 15:51] VITALS: BP 122/84; PULSE 104; TEMP 36.9; O2SAT 94
--- NOTE | 2017-06-27 18:32 | Progress Note ---
Internal Med Progress Note Date of Service: Jun 27, 2017. Provider Documentation: SUBJECTIVE: The patient was and examined Some back pain No other symptoms OBJECTIVE: Vital Signs-as noted below Exam: General-No distress at rest Eyes-normal ENT-normal Neck-supple Lungs-clear Heart-regular Abdomen-Benign Extremities-Trace edema Neuro-AAOx3 Lab data as noted below. ASSESSMENT & PLAN: This is a 56yo M with a PMH of lumbosacral disc degeneration, DM II, hypothyroidism, GERD, Gout, BPH and HLD who is POD #0 s/p decompression fusion T12-L2 with iliac bolts and removal of hardware L3-S1 by Dr. Maher. Lumbosacral back pain s/p decompression fusion: -Decompression T12-L2 with iliac bolts and removal of hardware L3-S1 by Dr. Maher. -Doing well post-operatively -Per ortho for pain control, wound care, anticoagulation and activities -Monitor H&H, continue incentive spirometry, PT/OT when appropriate -Minimal pain DM II: -A1c 8.1 in May 2017 ,now 7.7 -Hold home oral agents -12mg dexamethasone intraoperatively -Glycemic consult placed -BSG check AC HS -Sugar is controlled Numbness in R hand: -Likely 2/2 malpositioning post-operatively -Describes numbness in distribution of ulnar nerve in 4th & 5th dorsal aspect of fingers, hand -No motor or sensory deficit on exam -Monitor -resolved now -may have CTS Hypopigmented round rash over left arm Lotrimin cream Hypothyroidism: -Cont Synthroid GERD: -Cont Protonix Gout: -Cont allopurinol BPH: -Cont tamsulosin HLD: -Cont atorvastatin PCP: Bl[facility] Dispo: Per ortho Vital Signs: Date Time Temp Pulse Resp B/P (MAP) Pulse Ox O2 Delivery O2 Flow Rate FiO2 06/27/17 15:51 36.9 104 16 122/84 (97) 94 Room Air 06/27/17 12:17 36.9 93 16 128/78 (95) 94 Room Air 06/27/17 08:57 92 Room Air 06/27/17 08:09 37.0 98 18 112/82 (92) 92 Room Air 06/27/17 04:00 36.8 85 16 103/68 (80) 93 Room Air 06/27/17 00:00 Room Air 2/22/18 23:07 37.0 92 17 102/72 (82) 92 Room Air 06/26/17 20:48 96 Room Air 06/26/17 20:46 84 Room Air 06/26/17 19:48 36.6 100 18 99/64 (76) 92 Room Air Lab Results: Results Past 24 Hours Test 06/26/17 18:49 06/26/17 21:29 06/26/17 23:50 06/27/17 03:59 Range/Units Bedside Glucose 273 191 157 127 70-99 mg/dl Test 06/27/17 07:29 06/27/17 08:19 06/27/17 12:09 06/27/17 17:00 Range/Units White Blood Count 10.47 4.8-10.8 K/uL Red Blood Count 3.08 4.7-6.1 M/uL Hemoglobin 9.5 14.0-18.0 g/dL Hematocrit 27.5 42-52 % Mean Corpuscular Volume 89.3 80-100 fL Mean Corpuscular Hemoglobin 30.8 25-34 pg Mean Corpuscular Hemoglobin Concent 34.5 32-36 g/dl Platelet Count 143 130-400 K/uL Mean Platelet Volume 9.3 7.4-10.4 fL Neutrophils (%) (Auto) 72.5 % Lymphocytes (%) (Auto) 17.3 % Monocytes (%) (Auto) 9.9 % Eosinophils (%) (Auto) 0.1 % Basophils (%) (Auto) 0.0 % Neutrophils # (Auto) 7.59 1.4-6.5 K/uL Lymphocytes # (Auto) 1.81 1.2-3.4 K/uL Monocytes # (Auto) 1.04 0.11-0.59 K/uL Eosinophils # (Auto) 0.01 0-0.5 K/uL Basophils # (Auto) 0.00 0-0.2 K/uL RDW Standard Deviation 46.1 36.4-46.3 fL RDW Coefficient of Variation 14.0 11.5-14.5 % Immature Granulocyte % (Auto) 0.2 % Immature Granulocyte # (Auto) 0.02 0.00-0.02 K/uL Sodium Level 138 136-145 mmol/L Potassium Level 4.0 3.5-5.1 mmol/L Chloride Level 105 98-107 mmol/L Carbon Dioxide Level 26 21-32 mmol/L Anion Gap 7.0 3-11 mmol/L Blood Urea Nitrogen 15 7-18 mg/dl Creatinine 0.92 0.60-1.40 mg/dl Est Creatinine Clear Calc Drug Dose 107.3 ml/min Estimated GFR () 105.9 Estimated GFR (Non- 91.4 BUN/Creatinine Ratio 16.6 10-20 Random Glucose 139 70-99 mg/dl Calcium Level 8.2 8.5-10.1 mg/dl Bedside Glucose 149 126 165 70-99 mg/dl
[2017-06-27] MEDS: DOCUSATE SODIUM/SENNA 50/8.6MG TAB PO SCH (21:01)
[2017-06-27] MEDS: CLOTRIMAZOLE 1% CR 15 GM TUBE EXT SCH (21:02)
[2017-06-27] MEDS: INSULIN GLARGINE SOLOSTAR 100 UNITS/ML 3 ML PEN SC SCH (21:08)
[2017-06-28 00:03] VITALS: BP 124/79; PULSE 109; TEMP 37; O2SAT 94
[2017-06-28] MEDS: OXYCODONE HCL IR 5 MG TAB (IMMEDIATE RELEASE) PO PRN ×2 (03:45→08:09)
[2017-06-28] MEDS: POLYETHYLENE (MIRALAX) 17 GM PACK PO SCH ×4 (05:22→23:11)
[2017-06-28] MEDS: LEVOTHYROXINE 150 MCG TAB PO SCH (05:22)
[2017-06-28] MEDS: TRAMADOL HCL 50 MG TAB PO PRN ×2 (05:28→23:01)
[2017-06-28 06:45] VITALS: BP 137/77; PULSE 111; TEMP 36.8; O2SAT 92
[2017-06-28] MEDS: LORATADINE 10 MG TAB PO SCH (08:12)
[2017-06-28] MEDS: INSULIN ASPART 100 UNITS/ML 3 ML PEN SC SCH ×4 (08:12→20:57)
[2017-06-28] MEDS: PANTOprazole SOD 40 MG TAB PO SCH (08:12)
[2017-06-28] MEDS: ATORVASTATIN 20 MG TAB PO SCH (08:13)
[2017-06-28] MEDS: ALLOPURINOL 300 MG TAB PO SCH (08:13)
[2017-06-28] MEDS: TAMSULOSIN HCL 0.4 MG CAP PO SCH (08:13)
[2017-06-28] MEDS: CLOTRIMAZOLE 1% CR 15 GM TUBE EXT SCH ×2 (08:14→20:56)
[2017-06-28] MEDS ORDERED: INSULIN GLARGINE SOLOSTAR 100 UNITS/ML 3 ML PEN SC ONE (08:45)
--- NOTE | 2017-06-28 10:31 | Progress Note ---
Progress Note Date of Service Jun 28, 2017. Progress Note Back pain is controlled. Leg symptoms markedly improved. Vital signs stable. On exam he is good strength testing appears comfortable. Assessment status post lumbar decompression fusion. Plan at this time is progressing nicely we will maintain his SHANTE drain monitors progress and anticipate home Friday.
[2017-06-28 11:18] LABS: HEMATOCRIT 27.1 % (42-52); HEMOGLOBIN 9.8 g/dL (14.0-18.0); MEAN CELL VOLUME 87.1 fL (80-100); MEAN CORPUSCULAR HEMOGLOBIN 31.5 pg (25-34); MEAN CORPUSCULAR HGB CONC 36.2 g/dl (32-36); MEAN PLATELET VOLUME 8.7 fL (7.4-10.4); PLATELET COUNT 146 K/uL (130-400); RED CELL DISTRIBUTION WIDTH CV 13.7 % (11.5-14.5); RED CELL DISTRIBUTION WIDTH SD 43.9 fL (36.4-46.3); WHITE BLOOD COUNT 10.31 K/uL (4.8-10.8)
[2017-06-28] MEDS: KETOROLAC TROMETHAMINE 30 MG/ML VIAL IV PRN ×2 (11:37→18:14)
[2017-06-28 11:39] LABS: CALCIUM 8.2 mg/dl (8.5-10.1); CREATININE 0.77 mg/dl (0.60-1.40); POTASSIUM 3.4 mmol/L (3.5-5.1)
--- NOTE | 2017-06-28 15:00 | Pharmacy Progress Note ---
Pharmacy Glycemic Short Note 2 Date of Service Jun 28, 2017. OUTPATIENT ANTIDIABETIC REGIMEN: * metformin 500 mg PO BID ASSESSMENT: * Yesterday, Mr Rojo received 45 units of insulin with 35 units of basal (oral intake of carbohydrates extremely low). Blood sugars ranged from 126-204 mg/dL; today's fasting blood sugar was 236 mg/dL. * Today's fasting was significantly more elevated than yesterday's fasting therefore gave a weight-based stress of 3 Lantus dose (1/2 dose). The effects of dexamethasone are prolonged in this patient. Do not want to netta for too long with basal insulin therefore will order scale for this evening in case hyperglycemia is prolonged. * For Novolog, lunch blood sugar decreased from 236 mg/dL to 159 mg/dL so effective at weight-based stress of 2. Continue. * Mr Rojo is a 56 y/o M with a PMH of GERD, gout, BPH, HLD, hypothyroidism, and poorly controlled type 2 diabetes (goal HbA1C is around 6.5% -7% per the Elements of Diabetes Care Scoring Scale). He underwent a lumbar spinal surgery yesterday. Today is POD 1. Patient received 84 units of insulin -yesterday (60 units of Lantus) secondary to receiving 12 mg of IV dexamethasone in surgery. Blood sugars ranged from 157-273 mg/dL. * Today's fasting blood sugar was 149 mg/dL. Gave additional Lantus 20 units ( weight-based stress of 2 half dose) then scheduled Lantus 15 units (weight- based stress of 1 half-dose) for tonight if blood sugar elevated at 180 mg/dL. This will provide tapering Lantus doses as dexamethasone tapers. * For Novolog, continue weight-based stress of 3 dosing with breakfast; however with lunch blood sugar trending downwards, loosened to weight-based stress of 2. * For metformin, continue to hold. Restart metformin tomorrow if demonstrates appropriate diet. PLAN FOR INPATIENT GLYCEMIC CONTROL: * Hold outpatient oral diabetes medications * Basal insulin * Lantus 30 units SQ x 1 then 0-15 units tonight if (Lantus 0 units if blood sugar less than 180 mg/dL, Lantus 15 units if blood sugar over 250 mg/dL) * Bolus insulin * NovoLog per scale ACHS or Q6hrs while NPO * Goal Range: Low 110 mg/dL - High 140 mg/dL * Correction Factor: 20 mg/dL/unit * Nutritional / Prandial insulin per carb ratio of 1 unit per 6 grams CHO consumed PLAN FOR DISCHARGE: * Patient's HbA1C is uncontrolled. Recommend increasing metformin to maximum dose of 1000 mg PO BID. May also consider addition of second agent such as Victoza or Jardiance both of which have been proven to reduce cardiovascular morbidity and mortality in diabetes.
[2017-06-28 15:01] VITALS: BP 97/66; PULSE 88; TEMP 37; O2SAT 92
[2017-06-28] MEDS: ACETAMINOPHEN 500 MG TAB PO PRN (15:32)
[2017-06-28] MEDS: DOCUSATE SODIUM/SENNA 50/8.6MG TAB PO SCH (20:56)
[2017-06-28] MEDS: INSULIN GLARGINE SOLOSTAR 100 UNITS/ML 3 ML PEN SC SCH (20:57)
[2017-06-28 23:24] VITALS: BP 107/80; PULSE 92; TEMP 36.7; O2SAT 96
[2017-06-29] MEDS: KETOROLAC TROMETHAMINE 30 MG/ML VIAL IV PRN ×3 (00:56→13:45)
[2017-06-29] MEDS ORDERED: INSULIN ASPART 100 UNITS/ML 3 ML PEN SC SCH (02:00)
[2017-06-29] MEDS: LEVOTHYROXINE 150 MCG TAB PO SCH (05:47)
[2017-06-29] MEDS: POLYETHYLENE (MIRALAX) 17 GM PACK PO SCH ×2 (05:47→12:03)
[2017-06-29] MEDS: ACETAMINOPHEN 500 MG TAB PO PRN (05:52)
[2017-06-29 07:25] VITALS: BP 99/62; PULSE 83; TEMP 36.7; O2SAT 95
[2017-06-29] MEDS: CLOTRIMAZOLE 1% CR 15 GM TUBE EXT SCH (08:44)
[2017-06-29] MEDS: TAMSULOSIN HCL 0.4 MG CAP PO SCH (08:45)
[2017-06-29] MEDS: ALLOPURINOL 300 MG TAB PO SCH (08:45)
[2017-06-29] MEDS: PANTOprazole SOD 40 MG TAB PO SCH (08:45)
[2017-06-29] MEDS: ATORVASTATIN 20 MG TAB PO SCH (08:45)
[2017-06-29] MEDS: LORATADINE 10 MG TAB PO SCH (08:45)
[2017-06-29] MEDS: INSULIN ASPART 100 UNITS/ML 3 ML PEN SC SCH ×2 (08:49→12:31)
[2017-06-29] MEDS ORDERED: POTASSIUM CHLORIDE 10 MEQ TABCR PO ONE (10:45)
[2017-06-29] MEDS ORDERED: HYDR-5688 PO (12:17)
[2017-06-29 12:32] VITALS: BP 99/62; PULSE 83; TEMP 36.7; O2SAT 95
--- NOTE | 2017-06-29 12:35 | Discharge Summary ---
Orthopedic Discharge Summary Admission Date/Reason Jun 26, 2017 at 07:30 Lumbar Spinal Stenosis. Discharge Date/Disposition Jun 29, 2017 Home Diagnosis Principal Diagnosis: Lumbar spinal stenosis Admission Physical Exam As per Admitting History & Physical. Hospital Course Patient underwent multilevel lumbar decompression fusion tolerated this well was taken to the orthopedic floor postop leak. Postoperative day #1 he was up in the [place] progressed through postoperative day #2 and 3 subsequently he was discharged home. Discharge orders and instructions found on the chart for further review. Discharge Instructions Please refer to the electronic Patient Visit Report (Discharge Instructions) for additional information.
[2017-06-29] MEDS ORDERED: METFORMIN HCL 500 MG TAB PO SCH (13:00)
--- NOTE | 2017-06-29 14:38 | Progress Note ---
Internal Med Progress Note Date of Service: Jun 29, 2017. Provider Documentation: SUBJECTIVE: The patient was and examined Some back pain No other symptoms Ambulating without any difficulty OBJECTIVE: Vital Signs-as noted below Exam: General-No distress at rest Eyes-normal ENT-normal Neck-supple Lungs-clear Heart-regular Abdomen-Benign Extremities-Trace edema Neuro-AAOx3 Lab data as noted below. ASSESSMENT & PLAN: This is a 56yo M with a PMH of lumbosacral disc degeneration, DM II, hypothyroidism, GERD, Gout, BPH and HLD who is POD #0 s/p decompression fusion T12-L2 with iliac bolts and removal of hardware L3-S1 by Dr. Maher. Lumbosacral back pain s/p decompression fusion: -Decompression T12-L2 with iliac bolts and removal of hardware L3-S1 by Dr. Maher. -Doing well post-operatively -Per ortho for pain control, wound care, anticoagulation and activities -Monitor H&H, continue incentive spirometry, PT/OT when appropriate -No pain -Likely home today DM II: -A1c 8.1 in May 2017 ,now 7.7 -Hold home oral agents -12mg dexamethasone intraoperatively -Glycemic consult placed -BSG check AC HS -Sugar is controlled Numbness in R hand: -Likely 2/2 malpositioning post-operatively -Describes numbness in distribution of ulnar nerve in 4th & 5th dorsal aspect of fingers, hand -No motor or sensory deficit on exam -Monitor -resolved now -may have CTS -No more symptoms Hypopigmented round rash over left arm Lotrimin cream Hypothyroidism: -Cont Synthroid GERD: -Cont Protonix Gout: -Cont allopurinol BPH: -Cont tamsulosin HLD: -Cont atorvastatin PCP: Bl[facility] Dispo: Per ortho Medically stable to be discharged Vital Signs: Date Time Temp Pulse Resp B/P (MAP) Pulse Ox O2 Delivery O2 Flow Rate FiO2 06/29/17 12:32 36.7 83 16 95 Room Air 06/29/17 07:30 Room Air 06/29/17 07:25 36.7 83 16 99/62 (74) 95 Room Air 06/28/17 23:24 36.7 92 17 107/80 (89) 96 Room Air 06/28/17 23:10 Room Air 06/28/17 15:30 Room Air 06/28/17 15:01 37.0 88 16 97/66 (49) 92 Room Air Lab Results: Results Past 24 Hours Test 06/28/17 17:17 06/28/17 20:44 06/29/17 01:59 06/29/17 08:17 Range/Units Bedside Glucose 126 131 132 119 70-99 mg/dl Test 06/29/17 12:04 Range/Units Bedside Glucose 105 70-99 mg/dl
== END 2017-06-29 14:05 | disposition home or self-care (01) | DRG 455 ==
LOC: C.ACU 05:54 → C.3E 07:30 → ENRESERV 13:25
PROVIDERS: ADMIT Orthopaedic Surgery Orthopaedic Surgery of the Spine; ATTEND Orthopaedic Surgery Orthopaedic Surgery of the Spine
PROC: 0SG00AJ Fusion of Lumbar Vertebral Joint with Interbody Fusion Device, Posterior Approach, Anterior Column, Open Approach (ICD-10-PCS; principal; 2017-06-26 07:45)
PROC: 0SP304Z Removal of Internal Fixation Device from Lumbosacral Joint, Open Approach (ICD-10-PCS; principal; 2017-06-26 07:45)
PROC: 0SG1071 Fusion of 2 or more Lumbar Vertebral Joints with Autologous Tissue Substitute, Posterior Approach, Posterior Column, Open Approach (ICD-10-PCS; principal; 2017-06-26 07:45)
PROC: 0SP004Z Removal of Internal Fixation Device from Lumbar Vertebral Joint, Open Approach (ICD-10-PCS; principal; 2017-06-26 07:45)
PROC: 0RGA071 Fusion of Thoracolumbar Vertebral Joint with Autologous Tissue Substitute, Posterior Approach, Posterior Column, Open Approach (ICD-10-PCS; principal; 2017-06-26 07:45)
PROC: 0RG6071 Fusion of Thoracic Vertebral Joint with Autologous Tissue Substitute, Posterior Approach, Posterior Column, Open Approach (ICD-10-PCS; principal; 2017-06-26 07:45)
PROC: 0ST20ZZ Resection of Lumbar Vertebral Disc, Open Approach (ICD-10-PCS; principal; 2017-06-26 07:45)
DX: M48.061 Spinal stenosis, lumbar region without neurogenic claudication (principal); E11.9 Type 2 diabetes mellitus without complications; R20.0 Anesthesia of skin; E03.9 Hypothyroidism, unspecified; K21.9 Gastro-esophageal reflux disease without esophagitis; N40.0 Benign prostatic hyperplasia without lower urinary tract symptoms; E78.5 Hyperlipidemia, unspecified; Z79.899 Other long term (current) drug therapy; Z79.84 Long term (current) use of oral hypoglycemic drugs